=== PATIENT | male | born 1990 | race African-American/Black ===

== ENCOUNTER 2024-07-04 20:01 | Emergency (ER) | payer OTHER, SELFPAY ==
[2024-07-04 21:00] LABS: Absolute Eosinophils 0.2 K/uL (0-0.5); Absolute Monocytes 0.5 K/uL (0.1-1.3); Absolute Neutrophil 3.2 K/uL (1.8-8.0); Basophils % 0.7 % (0-1.3); Eosinophils % 3.1 % (0-4.4); Hematocrit 43.4 % (39.6-49.0); Hemoglobin 14.4 g/dL (13.6-17.9); Lymphocytes % 33.7 % (15.3-44.8); MCH 30.1 pg (27.0-35.0); MCHC 33.3 g/dL (32.0-36.0); MCV 90.3 fL (80-100); MPV 8.5 fL (7.6-11.3); Monocytes % 8.4 % (3.3-12.3); Neutrophils % 54.1 % (41.7-73.7); Nucleated Red Blood Cells % 0.3 % (0-0); Platelets 261 thou/uL (152-406); Red Cell Distribution Width 14.7 % (12.1-15.2)
[2024-07-04 21:18] LABS: Anion Gap 8.3 mEq/L (5.0-15.0); Potassium 3.3 mEq/L (3.5-5.1); Troponin High Sensitivity 4.4 pg/mL (<58.9)
--- NOTE | 2024-07-04 21:24 | RAD REPORT ---
EXAM DESCRIPTION: [facility] Single View07/04/2024 8:57 pm CLINICAL HISTORY: Chest pain COMPARISON: none FINDINGS: The lungs appear clear of acute infiltrate. The heart is normal size IMPRESSION: No acute abnormalities displayed
--- NOTE | 2024-07-04 21:50 | EDPHYS ---
Physician Documentation [facility] Name: Mando Espinoza Age: 33 yrs Sex: Male : 1990 Arrival Date: 07/04/2024 Time: 20:01 Bed 8 Private MD: ED Physician Parish Vinson HPI: 07/04 20:44 This 33 yrs old Black Male presents to ER via Ambulatory with complaints of Chest Pain, bo1 Chest Tightness, High Blood Pressure. 20:44 The patient or guardian reports chest pain that is located primarily in the anterior bo1 chest wall, mid-sternal area, Left of sterum. The pain does not radiate. The chest pain is described as Tightness. Duration: The patient or guardian reports a single episode. Duration: The patient or guardian reports a single episode, Hx of onset since 1430 hrs then lasted for 3 hours till his nap and resurfaced after 1730 hrs. Pt decided to seek ER care after FHx for diabetes HTN and CAD. Historical: - Allergies: 20:09 No Known Allergies; cm10 - Home Meds: 20:09 None [Active]; cm10 - PMHx: 20:09 None; cm10 - PSHx: 20:09 None; cm10 - Immunization history:: Adult Immunizations up to date. - Infectious Disease History:: Denies. - Social history:: Smoking status: Patient denies any tobacco usage or history of. 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 20:42 Constitutional: The patient appears in no acute distress, alert, awake, comfortable, 20:42 Eyes: Sclera: no appreciated abnormality, 20:42 Neck: External neck: is normal, 20:42 Chest/axilla: Inspection: normal, 20:42 Cardiovascular: Rate: normal, Rhythm: regular, Pulses: no pulse deficits are appreciated, Heart sounds: normal, 20:42 ECG was reviewed by the Attending Physician. 20:42 Respiratory: the patient does not display signs of respiratory distress, Respirations: normal, Breath sounds: are clear throughout, 20:42 Abdomen/GI: Inspection: abdomen appears normal, Palpation: abdomen is soft and non-tender, voluntary guarding, 20:42 Musculoskeletal/extremity: Extremities: all appear grossly normal, with no appreciated pain with palpation, 20:42 Skin: Appearance: Color: normal in color, Temperature: warm, diaphoresis is not appreciated, Vital Signs: 20:08 BP 160 / 93; Pulse 87; Resp 16; Temp 97.1; Pulse Ox 98% on R/A; Weight 172.37 kg; cm10 Height 6 ft. 4 in. ; Pain 4/10; 20:54 BP 149 / 95; Pulse 75; Resp 16; Temp 97.1; Pulse Ox 99% on R/A; Pain 4/10; bm8 22:12 BP 148 / 94; Pulse 77; Resp 17; Temp 97.1; Pulse Ox 97% ; Pain 0/10; bm8 20:08 Body Mass Index 46.25 (172.37 kg, 193.04 cm) cm10 20:08 Pain Scale: Adult cm10 20:54 Pain Scale: Adult bm8 22:12 Pain Scale: Adult bm8 [place] Coma Score: 20:54 Eye Response: spontaneous(4). Motor Response: obeys commands(6). Verbal Response: bm8 oriented(5). Total: 15. 22:12 Eye Response: spontaneous(4). Motor Response: obeys commands(6). Verbal Response: bm8 oriented(5). Total: 15. MDM: 20:22 Patient medically screened. bo1 20:50 ED course: Pt's BP at home was previously elevated but now is normal in the ER. bo1 21:50 Data reviewed: vital signs, lab test result(s), cardiac enzymes, CBC, electrolytes, bo1 EKG, radiologic studies, plain films. 07/04 20:22 Order name: Basic Metabolic Panel; Complete Time: 21:18 bo1 07/04 20:22 Order name: CBC with Diff; Complete Time: 21:18 bo1 07/04 20:22 Order name: Troponin HS; Complete Time: 21:18 bo1 07/04 20:22 Order name: XRAY Chest (1 view); Complete Time: 21:40 bo1 07/04 20:22 Order name: EKG; Complete Time: 20:23 bo1 07/04 20:22 Order name: Cardiac monitoring; Complete Time: 20:54 bo1 07/04 20:22 Order name: EKG - Nurse/Tech; Complete Time: 20:43 bo1 07/04 20:22 Order name: IV Saline Lock; Complete Time: 20:54 bo1 07/04 20:22 Order name: Labs collected and sent; Complete Time: 20:54 bo1 07/04 20:22 Order name: O2 Per Protocol; Complete Time: 20:54 bo1 07/04 20:22 Order name: O2 Sat Monitoring; Complete Time: 20:54 bo1 EC:42 Rate is 88 beats/min. Rhythm is regular. QRS [place] is Normal. MT interval is normal. QRS bo1 interval is normal. QT interval is normal. No Q waves. T waves are Normal. No ST changes noted. Clinical impression: Normal ECG. Interpreted by me. Reviewed by me. Administered Medications: 22:01 Drug: Potassium Chloride PO 40 mEq PO once Route: PO; me1 22:14 Follow up: Response: No adverse reaction bm8 Disposition Summary: 07/04/24 21:49 Discharge Ordered Notes: Location: Home bo1 Problem: new bo1 Symptoms: are unchanged bo1 Condition: Stable bo1 Diagnosis - Chest pain, unspecified bo1 - Hypokalemia bo1 Followup: bo1 - With: Private Physician - When: 2 - 3 days - Reason: Recheck today's complaints Discharge Instructions: - Discharge Summary Sheet bo1 - Nonspecific Chest Pain, Adult bo1 - Nonspecific Chest Pain, Adult, [id number] bo1 - Hypokalemia bo1 Forms: - Medication Reconciliation Form bo1 - Antibiotic Education bo1 - Prescription Opioid Use bo1 - Patient Portal Instructions bo1 - Leadership Thank You Letter bo1 Prescriptions: - Potassium Chloride 10 mEq Oral Tablet - take 1 tablet ORAL route every 12 hours; 30 tablet; Refills: 0, Product bo1 Selection Permitted Signatures: Dispatcher [employer] Brittaney Aceveod, RN RN cm10 Maggie Jarvis RN RN me1 Parish Vinson MD MD bo1 David Bonner RN bm8
--- NOTE | 2024-07-04 21:50 | ER ---
Nurse's Notes [facility] Name: Mando Espinoza Age: 33 yrs Sex: Male : 1990 Arrival Date: 07/04/2024 Time: 20:01 Bed 8 Private MD: Diagnosis: Chest pain, unspecified;Hypokalemia Presentation: 07/04 20:08 Chief complaint: Patient states: Chest pain to the left side of his chest that does not cm10 radiate onset today. Pt states that he was at work when it started. Pt reports having nausea and dizziness when it started. Pt describes the pain as a tightness and rates the pain a 4. Coronavirus screen: Client denies travel out of the [place] in the last 14 days. At this time, the client does not indicate any symptoms associated with coronavirus-19. Ebola Screen: Patient denies travel to an Ebola-affected area in the 21 days before illness onset. No symptoms or risks identified at this time. Initial Sepsis Screen: Does the patient meet any 2 criteria? No. Patient's initial sepsis screen is negative. Does the patient have a suspected source of infection? No. Patient's initial sepsis screen is negative. Risk Assessment: Do you want to hurt yourself or someone else? Patient reports no desire to harm self or others. Onset of symptoms was July 04, 2024. 20:08 Method Of Arrival: Ambulatory cm10 20:08 Acuity: LENNY 2 cm10 Triage Assessment: 20:10 General: Appears in no apparent distress. comfortable, Behavior is calm, cooperative. cm10 Pain: Complains of pain in chest Pain does not radiate. Pain currently is 4 out of 10 on a pain scale. Quality of pain is described as Tightness Pain began 4 hours ago. Also complains of nausea. Neuro: No deficits noted. Level of Consciousness is awake, alert, obeys commands, Oriented to person, place, time, situation, Appropriate for age. Respiratory: No deficits noted. Airway is patent Respiratory effort is even, unlabored, Respiratory pattern is regular, symmetrical. Historical: - Allergies: 20:09 No Known Allergies; cm10 - Home Meds: 20:09 None [Active]; cm10 - PMHx: 20:09 None; cm10 - PSHx: 20:09 None; cm10 - Immunization history:: Adult Immunizations up to date. - Infectious Disease History:: Denies. - Social history:: Smoking status: Patient denies any tobacco usage or history of. Screenin:54 [facility] ED Fall Risk Assessment (Adult) History of falling in the last 3 months, bm8 including since admission No falls in past 3 months (0 pts) Confusion or Disorientation No (0 pts) Intoxicated or Sedated No (0 pts) Impaired Gait No (0 pts) Mobility Assist Device Used No (0 pt) Altered Elimination No (0 pt) Score/Fall Risk Level 0 - 2 = Low Risk Oriented to surroundings, Maintained a safe environment, Educated pt \T\ family on fall prevention, incl call for assistance when getting out of bed, Assessed \T\ reinforced patient's understanding of fall precautions, Hourly rounding (assess needs \T\ fall precautionary measures) done, Used ambulatory aids as needed (educated on \T\ assisted with), Used gait belt as appropriate. Abuse screen: Denies threats or abuse. Nutritional screening: No deficits noted. Tuberculosis screening: No symptoms or risk factors identified. Assessment: 20:54 Reassessment: Patient appears in no apparent distress at this time. Patient and/or bm8 family updated on plan of care and expected duration. Pain level reassessed. Patient is alert, oriented x 3, equal unlabored respirations, skin warm/dry/pink. Patient states feeling better. Patient states symptoms have improved. General: Appears in no apparent distress. comfortable, Behavior is calm, cooperative, appropriate for age. Pain: Complains of pain in chest Pain does not radiate. Pain currently is 4 out of 10 on a pain scale. Neuro: Level of Consciousness is awake, alert, obeys commands, Oriented to person, place, time, situation, Appropriate for age. Cardiovascular: Heart tones S1 S2 present Capillary refill < 3 seconds Patient's skin is warm and dry. Rhythm is sinus rhythm. Respiratory: Airway is patent Respiratory effort is even, unlabored, Respiratory pattern is regular, symmetrical, Breath sounds are clear bilaterally. GI: No signs and/or symptoms were reported involving the gastrointestinal system. : No signs and/or symptoms were reported regarding the genitourinary system. EENT: No signs and/or symptoms were reported regarding the EENT system. Derm: No signs and/or symptoms reported regarding the dermatologic system. Musculoskeletal: No signs and/or symptoms reported regarding the musculoskeletal system. 22:12 Reassessment: Patient appears in no apparent distress at this time. Patient and/or bm8 family updated on plan of care and expected duration. Pain level reassessed. Patient is alert, oriented x 3, equal unlabored respirations, skin warm/dry/pink. Patient denies pain at this time. Patient states feeling better. Patient states symptoms have improved. Pain: Denies pain. Vital Signs: 20:08 BP 160 / 93; Pulse 87; Resp 16; Temp 97.1; Pulse Ox 98% on R/A; Weight 172.37 kg; cm10 Height 6 ft. 4 in. ; Pain 4/10; 20:54 BP 149 / 95; Pulse 75; Resp 16; Temp 97.1; Pulse Ox 99% on R/A; Pain 4/10; bm8 22:12 BP 148 / 94; Pulse 77; Resp 17; Temp 97.1; Pulse Ox 97% ; Pain 0/10; bm8 20:08 Body Mass Index 46.25 (172.37 kg, 193.04 cm) cm10 20:08 Pain Scale: Adult cm10 20:54 Pain Scale: Adult bm8 22:12 Pain Scale: Adult bm8 [place] Coma Score: 20:54 Eye Response: spontaneous(4). Motor Response: obeys commands(6). Verbal Response: bm8 oriented(5). Total: 15. 22:12 Eye Response: spontaneous(4). Motor Response: obeys commands(6). Verbal Response: bm8 oriented(5). Total: 15. ED Course: 20:04 Patient arrived in ED. jj6 20:09 Triage completed. cm10 20:11 Arm band placed on Patient placed in an exam room, on a stretcher. cm10 20:18 EKG completed in triage. Results shown to MD. cm10 20:18 EKG done, by ED staff, reviewed by Parish Vinson MD. cm10 20:21 Maggie Jarvis, RN is Primary Nurse. me1 20:22 Parish Vinson MD is Attending Physician. bo1 20:43 David Bonner, RN is Primary Nurse. bm8 20:54 Patient has correct armband on for positive identification. Bed in low position. Call bm8 light in reach. Side rails up X 1. Adult w/ patient. Client placed on continuous cardiac and pulse oximetry monitoring. NIBP monitoring applied. school lunch monitor on. Pulse ox on. NIBP on. Door closed. Noise minimized. Warm blanket given. Verbal reassurance given. 20:54 No provider procedures requiring assistance completed. Initial lab(s) drawn, by me, elvie sent to lab. Inserted saline lock: 20 gauge in left hand, using aseptic technique. Blood collected. Flushed with 10 mL NS Missed attempt(s): 20 gauge in left antecubital area. Bleeding controlled, band aid applied, catheter tip intact. 20:54 Patient maintains SpO2 saturation greater than 95% on room air. bm8 20:59 XRAY Chest (1 view) In Process Unspecified. EDMS 22:12 Provided Education on: post er care. bm8 22:12 IV discontinued, intact, bleeding controlled, No redness/swelling at site. Pressure bm8 dressing applied. Administered Medications: 22:01 Drug: Potassium Chloride PO 40 mEq PO once Route: PO; me1 22:14 Follow up: Response: No adverse reaction bm8 Medication: 20:54 VIS not applicable for this client. bm8 Outcome: 21:49 Discharge ordered by . bo1 22:12 Discharged to home ambulatory, bm8 22:12 Condition: stable 22:12 Discharge instructions given to patient, family, Instructed on discharge instructions, follow up and referral plans. safety practices, Demonstrated understanding of instructions, follow-up care, medications, Prescriptions given X 1, 22:14 Patient left the ED. bm8 Signatures: Dispatcher [employer] EDBere [id number] Brittaney Jose, RN RN cm10 Maggie Jarvis RN RN me1 Parish Vinson MD MD bo1 David Bonner, RN RN bm8
[2024-07-04] MEDS ORDERED: POTASSIUM CL SA 10 MEQ TAB PO ONE (21:59)
[2024-07-04 22:20] VITALS: TEMP 97.1
[2024-07-04 22:23] VITALS: BP 148/94; O2SAT 97
--- NOTE | 2024-07-06 13:48 | EKG ---
Test Date: 2024-07-04 Test Time: 20:17:46 Healthcare Specialist: SERGEY MEASUREMENT RESULTS: Intervals: Rate: 88 AK: 156 QRSD: 88 QT: 384 QTc: 464 [place]: P: 49 AK: 156 QRS: 30 T: 41 INTERPRETIVE STATEMENTS: Normal sinus rhythm Normal ECG No previous ECG available for comparison Electronically Signed On 07-06-24 13:45:11 CDT by Marlon Davis
== END 2024-07-04 22:14 | disposition home or self-care (01) ==
LOC: ER 20:01
DX: R07.9 Chest pain, unspecified (principal); E87.6 Hypokalemia
CPT/HCPCS: 36415; 71045; 80048; 84484; 85025; 93005; 99285